=== PATIENT | female | born 1960 | race Caucasian/White ===

== ENCOUNTER → 2023-08-19 14:41 | Outpatient (REF) | payer OTHER, SELFPAY | LOC: WDC 14:41 | PROVIDERS: ATTENDING PHYSICIAN Obstetrics & Gynecology Gynecology; FAMILY PHYSICIAN Family Medicine | DX: Z12.31 Encounter for screening mammogram for malignant neoplasm of breast (principal) | CPT/HCPCS: 77063; 77067 ==

== ENCOUNTER → 2024-08-22 14:28 | Outpatient (REF) | payer MEDICARE, SELFPAY | LOC: WDC 14:28 | PROVIDERS: ATTENDING PHYSICIAN Obstetrics & Gynecology Gynecology; FAMILY PHYSICIAN Student in an Organized Health Care Education/Training Program | DX: Z12.31 Encounter for screening mammogram for malignant neoplasm of breast (principal) | CPT/HCPCS: 77063; 77067 ==

== ENCOUNTER 2024-11-24 11:18 | Emergency (ER) | payer MEDICARE, SELFPAY ==
[2024-11-24 11:19] VITALS: BP 149/92
[2024-11-24 11:36] VITALS: BP 119/88
[2024-11-24 11:49] LABS: % Basophils 0.2 % (0-2); % Immature Granulocytes 0.3 % (0-0.5); % Lymphocytes 21.6 % (20.5-51.1); % Monocytes 6.9 % (1.7-9.3); Absolute Eosinophils 0.1 10^3/uL (0-0.7); Absolute Lymphocytes 2.2 10^3/uL (1.2-3.4); Absolute Monocytes 0.7 10^3/uL (0.1-0.6); Hematocrit 43.1 % (37.0-47.0); Hemoglobin 15.2 g/dL (12.0-16.0); Mean Corp Hgb Conc. 35.3 g/dL (33.0-37.0); Mean Corpuscular Hgb 30.3 pg (27.0-31.0); Mean Corpuscular Volume 85.9 fL (81.0-99.0); Mean Platelet Volume 9.8 fL (7.4-10.4); Nucleated Red Blood Cells % 0 %; Platelet Count 318 10^3/uL (130-400); Red Blood Cell Count 5.02 10^6/uL (4.20-5.40); Red Cell Dist. Width 12.2 % (11.5-14.5)
[2024-11-24 12:00] VITALS: BP 99/81
[2024-11-24 12:12] LABS: ALT (SGPT) 15 U/L (0-35); AST (SGOT) 17 U/L (14-36); Albumin 4.7 g/dl (3.5-5.0); Alkaline Phosphatase 77 U/L (38-126); Blood Urea Nitrogen 13 mg/dl (7-17); Carbon Dioxide 22 mmol/L (22-30); Chloride 110 mmol/L (98-107); Estimated Creatinine Clearance 91 ml/min; Glucose 119 mg/dl (70-99); Potassium 4.1 mmol/L (3.5-5.1); Sodium 140 mmol/L (135-145); Total Bilirubin 0.9 mg/dl (0.2-1.3); Total Protein 7.9 g/dl (6.3-8.2); eGFR > 60.00
--- NOTE | 2024-11-24 12:28 | ED.GENMED ---
History of Present Illness
General
Chief Complaint: Dizziness
Time Seen by Provider: 11/24/24 11:56
History of Present Illness
History of Present Illness:
64-year-old female presents to the emergency department for evaluation of abrupt onset of dizziness that began yesterday. She did have several episodes of vomiting. She notes that her symptoms have improved today but she remains dizzy particular
with position changes. Denies any shortness of breath, chest pain, vision changes, diplopia, or headaches. No history of similar symptoms. No recent viral syndrome
Past History
Past History
ED Past Medical History: None
ED Past Surgical History: None
Social History
Tobacco: Non-smoker
Alcohol: None
Drug: None
Personal:
Living: with family
Review of Systems
Review of Systems
Allergies reviewed?: Yes
All Other Systems: ROS reviewed and negative except as documented in HPI and ROS
Phy Exam
Physical Exam
Physical Exam:
GEN: Well appearing, NAD, WDWN
HEENT: Oral mucosa moist, no scleral icterus, no nasal congestion
Cardiac: Regular rate
Lung: No respiratory distress, no tachypnea
MSK: No gross deformity or injuries
Skin: Good color, no pallor or jaundice, no rashes
Neuro: AO x3; CN II-XII grossly intact. BUE strength 5/5 in all ma, sensation intact and symmetric. BLE strength 5/5 in all ma, sensation intact and symmetric. No reproducible nystagmus, normal gait with no ataxia
Psych: Calm, cooperative
Course
Orders/Labs/Results
Orders:
Orders
11/24/24 11:34
CMP [Comprehensive Metabolic Panel] Urgent
Complete Blood Count/With Diff Urgent
11/24/24 11:40
EKG [Electrocardiogram (*1)] Urgent
Reason for Study: Vertigo / Dizzy
EKG- Treatment ONCE
11/24/24 12:28
0.9% Sodium Chloride 1000 ml [Nss] 1,000 ml IV BOLUS
diazePAM [Valium Injection] 2 mg IV NOW STA
Abnormal Lab Results
11/24/24
11:34
Absolute Neuts (auto) 7.0 H 10^3/uL
(1.4-6.5)
Absolute Monos (auto) 0.7 H 10^3/uL
(0.1-0.6)
Chloride 110 H mmol/L
(98-107)
Glucose 119 H mg/dl
(70-99)
11/24/24 11:34
11/24/24 11:34
Vital Signs
Initial and Last Documented VS:
Initial Vital Signs
Temp Pulse Resp BP Pulse Ox
97.7 F 82 16 149/92 96
11/24/24 11:19 11/24/24 11:19 11/24/24 11:19 11/24/24 11:19 11/24/24 11:19
Last Documented Vital Signs
Temp Pulse Resp BP Pulse Ox
97.7 F 67 22 114/79 97
11/24/24 11:19 11/24/24 13:45 11/24/24 13:45 11/24/24 13:00 11/24/24 13:45
MDM/Problems Addressed
MDM/Problems Addressed:
Clinical findings most likely represent benign positional vertigo, I am unable to provoke any nystagmus with head movements however she admits her symptoms are dramatically improved to prior. Labs and EKG reassuring, given IV fluids and diazepam
with dramatic improvement in sensation
*Critical Care Note
Total Time (30-74mins, 75-104mins- exclusive of procedures): Not Applicable
ED Attending Note
-
Portions of this chart may have been created with voice recognition software.� Occasional wrong word or��sound alike� substitutions may have occurred due to the inherent limitations of voice recognition software.
Discharge Plan
Departure
Patient Disposition: Home (Routine Discharge)
Date of Disposition: 11/24/24
Time of Disposition: 13:52
Patient with high blood pressure during this ER visit?: No
Discharge Problem:
Vertigo
Instructions: Vertigo (a Type of Dizziness) (DC)
Prescriptions:
New
meclizine 25 mg tablet
25 mg PO TID PRN (Reason: dizziness) Qty: 15 0RF
No Action
cefuroxime axetil 500 MG tablet
500 mg PO BID Qty: 28 0RF
Referrals:
Yuko Weeks PA-C [Family Provider] -
Interventions
Interventions:
*Risk Screen - Suicide Last Done: 11/24/24 11:22
*General Assessment Last Done: 11/24/24 11:22
*Neglect/Abuse Screening Last Done: 11/24/24 11:27
*ED- Fall Risk Assessment Last Done: 11/24/24 11:27
*ED COVID-19 Vaccine History Last Done: 11/24/24 11:27
*Nursing Disposition Last Done: 11/24/24 14:20
ED- Neurological Assessment Last Done: 11/24/24 11:27
ED- Cardiac Assessment Last Done: 11/24/24 14:20
ED Swallowing Screen Last Done: 11/24/24 11:27
Discharge Date and Time
Discharge Date/Time: 11/24/24 14:34
Print Language: [place]
[2024-11-24] MEDS: NSS 1000 IV (12:32)
[2024-11-24] MEDS: VALIUM INJECTION 2 MG IV (12:32)
[2024-11-24 13:00] VITALS: BP 114/79
== END 2024-11-24 14:34 | disposition home or self-care (01) ==
LOC: EMR 11:18
PROVIDERS: EMERGENCY PHYSICIAN Emergency Medicine; FAMILY PHYSICIAN Student in an Organized Health Care Education/Training Program
DX: R42 Dizziness and giddiness (principal)
CPT/HCPCS: 99284; 96374; 96361; 80053; 85025; 93005